=== PATIENT | female | born 1975 | race Caucasian/White ===

== ENCOUNTER 2021-09-21 15:15 | Emergency (ER) | payer MEDICARE, MEDICAID ==
[~2021-09-21] VITALS: Ht 170.2 cm; Wt 111.1 kg
[~2021-09-21 15:15] MED LIST: AMBIEN 5 MG TABL5 M1 PO; AMLODIPINE BESY10 MG PO; FLEXERIL PO; HYDROCODON-ACE1 EAC7 PO; IBUPROFEN 800800 M1 PO; LISINOPRIL30 MG PO; LYRICA 75 MG CA75 MG PO; METFORMIN HCL500 MG PO; PRILOSEC 20 MG20 MG PO; SAVELLA50 MG PO; VENTOLIN HFA 1818 GM INH; VIIBRYD40 MG PO
[2021-09-21] MEDS ORDERED: ZOFRAN ODT4 MG DISSOLVE (15:23)
[2021-09-21] MEDS ORDERED: XANAX 0.5 MG0.5 MG PO (15:23)
[2021-09-21 16:00] VITALS: BP 147/105
== END 2021-09-21 16:01 | disposition home or self-care (01) ==
LOC: M.ERS 15:15
DX: F41.0 Panic disorder [episodic paroxysmal anxiety] (principal); I10 Essential (primary) hypertension; E11.9 Type 2 diabetes mellitus without complications; F32.9 Major depressive disorder, single episode, unspecified; J44.9 Chronic obstructive pulmonary disease, unspecified; M79.7 Fibromyalgia; F17.210 Nicotine dependence, cigarettes, uncomplicated; Z79.899 Other long term (current) drug therapy; Z88.8 Allergy status to other drugs, medicaments and biological substances; Z88.5 Allergy status to narcotic agent